=== PATIENT | female | born 1995 | race African-American/Black ===

== ENCOUNTER 2017-05-07 19:41 | Emergency (ER) | payer SELFPAY | END 2017-05-07 20:16 | disposition home or self-care (01) | LOC: ERS 19:41 | DX: E11.65 Type 2 diabetes mellitus with hyperglycemia (principal); J45.909 Unspecified asthma, uncomplicated; F41.9 Anxiety disorder, unspecified; F32.9 Major depressive disorder, single episode, unspecified; Z79.4 Long term (current) use of insulin | CPT/HCPCS: 36416; 99284 ==

== ENCOUNTER 2017-08-06 08:24 | Emergency (ER) | payer BC, SELFPAY ==
[2017-08-06] MEDS ORDERED: Fluorescein Opthalmic Strip ONE (11:04)
[2017-08-06] MEDS ORDERED: Proparacaine 0.5% Opth 15 ML BOT ONE (11:04)
== END 2017-08-06 11:43 | disposition home or self-care (01) ==
LOC: ERS 08:24
DX: S05.02XA Injury of conjunctiva and corneal abrasion without foreign body, left eye, initial encounter (principal); S05.01XA Injury of conjunctiva and corneal abrasion without foreign body, right eye, initial encounter; E11.9 Type 2 diabetes mellitus without complications; J45.909 Unspecified asthma, uncomplicated; F41.9 Anxiety disorder, unspecified; F32.9 Major depressive disorder, single episode, unspecified; Z79.4 Long term (current) use of insulin; X58.XXXA Exposure to other specified factors, initial encounter
CPT/HCPCS: 99282

== ENCOUNTER 2018-01-28 09:13 | Inpatient (IN) | payer SELFPAY ==
[2018-01-28 09:52] LABS: #Basophils 0.2 thou/uL (0.0-0.2); #Eosinphils 0.1 thou/uL (0.0-0.7); #Monocytes 0.5 thou/uL (0.11-0.59); #Neutrophils 5.3 thou/uL (1.40-6.50); %Eosinophils 0.7 % (0.0-10.0); %Lymphocytes 33.4 % (21.0-51.0); %Monocytes 5.8 % (0.0-10.0); %Neutrophils 58.2 % (42.0-75.0); Hemoglobin 16.5 g/dL (12.0-16.0); Mean Corpuscular Hemoglobin 31.1 pg (27.0-31.0); Mean Corpuscular Volume 91.3 fL (78.0-98.0); Mean Platelet Volume 10.3 fL (7.4-10.4); Platelet Count 263 thou/uL (130-400); Red Blood Cell (RBC) Count 5.32 mill/uL (4.20-5.40); White Blood Cell (WBC) Count 9.1 thou/uL (4.8-10.8)
[2018-01-28] MEDS ORDERED: Insulin Regular 300 UNITS/3 ML VIAL ONE (09:56)
[2018-01-28] MEDS ORDERED: Ondansetron ODT 4 MG TAB ONE (09:57)
[2018-01-28 10:13] LABS: BHCG - Serum Negative (NEGATIVE); Pregs Control Background? CLEAR/WHITE (CLR/WHITE); Pregs Control Bar Appear? YES (CONTROL BAR)
[2018-01-28 10:59] LABS: Bilirubin Negative (Negative); Blood, Urine Large (Negative); Clarity CLEAR (Clear); Glucose, Urine (Dipstick) >=1000 mg/dL (Negative); Leukocyte Negative (Negative); Nitrite Negative (Negative); Protein, Urine (Dipstick) 30 mg/dL (Neg-Trace); Specific Gravity, Urine 1.028 (1.002-1.036); Urobilinogen 0.2 mg/dL (0.2-1.0)
[2018-01-28 11:02] LABS: Bacteria/HPF None Seen HPF (None Seen); Hyaline Casts/LPF 0-3 HYALINE CAST LPF (0-3 Hyaline); Pathc Cast-AUWi Flag 0.14 (0-2.49); Squamous Epithelial 0-3 HPF (0-3); WBC/HPF 0-3 HPF (0-3); Yeast-AUWi Flag 18.6 (0-25.0)
[2018-01-28 12:57] LABS: Albumin 4.1 g/dL (3.5-5.0)
[2018-01-28 12:58] LABS: Chloride 99 mmol/L (98-107); Magnesium 2.1 mg/dL (1.6-2.6); Potassium 4.7 mmol/L (3.5-5.1); Sodium 126 mmol/L (136-145)
[2018-01-28 12:59] LABS: Calcium 8.6 mg/dL (7.8-10.44)
[2018-01-28 13:00] LABS: Glucose 459 mg/dL (70-105); Protein, Total 8.1 g/dL (6.0-8.3)
[2018-01-28 13:02] LABS: Alkaline Phosphatase 97 U/L (40-150); Bilirubin, Total 0.3 mg/dL (0.2-1.2)
[2018-01-28 13:03] LABS: Calc. Creatinine Clearance 0 mL/min (70-130); Estimated GFR-MDRD 51; Phosphorus 2.9 mg/dL (2.3-4.7)
[2018-01-28 13:04] LABS: BUN (Urea Nitrogen) 11 mg/dL (7.0-18.7)
[2018-01-28 13:05] LABS: AST (SGOT) 14 U/L (5-34)
[2018-01-28 13:06] LABS: ALT (SGPT) 10 U/L (8-55); Carbon Dioxide Less than 8 mmol/L (22-29)
[2018-01-28] MEDS ORDERED: Insulin Regular 100 units/100 ml in NS IVPB SCH (13:30)
[2018-01-28] MEDS ORDERED: Dextrose 5 %-0.45 % NaCl 1,000 ML IV PRN (15:29)
[2018-01-28] MEDS ORDERED: NS 0.9% w/ 20 MEQ KCL 1,000 ML IV PRN ×2 (15:29)
[2018-01-28] MEDS ORDERED: CCU Electrolyte Replacement 1 EACH IVPB ONE (15:29)
[2018-01-28] MEDS ORDERED: Sodium Chloride 0.9% 1,000 ML IV PRN ×4 (15:29)
[2018-01-28] MEDS ORDERED: Senokot 8.6 MG TAB PO PRN (15:29)
[2018-01-28] MEDS ORDERED: Guaifenesin DM 100-10/5 ML UDCUP PO PRN (15:29)
[2018-01-28 16:12] LABS: BUN (Urea Nitrogen) 8 mg/dL (7.0-18.7); Calc. Creatinine Clearance 0 mL/min (70-130); Calcium 8.4 mg/dL (7.8-10.44); Chloride 106 mmol/L (98-107); Estimated GFR-MDRD 69; Glucose 321 mg/dL (70-105); Potassium 4.4 mmol/L (3.5-5.1); Sodium 130 mmol/L (136-145)
[2018-01-28] MEDS ORDERED: Magnesium 2 GM/NS 0.9% 100 ML 2 GM in Premix Bag 1 BAG IVPB PRN (16:13)
[2018-01-28] MEDS ORDERED: Potassium Phosphate 12 MMOL in Sodium Chloride 0.9% 250 ML 250 ML IV PRN (16:13)
[2018-01-28] MEDS ORDERED: Potassium Chloride 40 MEQ in Premix Bag 1 BAG IVPB PRN (16:13)
[2018-01-28] MEDS ORDERED: Potassium Chloride 40 MEQ in Sodium Chloride 0.9% 250 ML 250 ML IVPB PRN (16:13)
[2018-01-28] MEDS ORDERED: Potassium Chloride 20 MEQ TAB PO PRN (16:13)
[2018-01-28] MEDS ORDERED: CCU ELECTROLYTE REPLACEMENT PROTOCOL FS PRN (16:13)
[2018-01-28] MEDS ORDERED: Potassium Phosphate 9 MMOL in Sodium Chloride 0.9% 100 ML IVPB PRN (16:13)
[2018-01-28] MEDS ORDERED: Magnesium Oxide 400 MG TAB PO PRN ×2 (16:13)
[2018-01-28] MEDS ORDERED: Potassium Phosphate 15 MMOL in Sodium Chloride 0.9% 250 ML 250 ML IV PRN (16:13)
[2018-01-28 16:15] LABS: Carbon Dioxide Less than 8 mmol/L (22-29)
[2018-01-28] MEDS: D5 1/2 NS w/20 mEq KCL 1,000 ML IV PRN ×2 (19:09→23:10)
[2018-01-28 20:01] LABS: Anion Gap 17 mmol/L (10-20); BUN (Urea Nitrogen) 6 mg/dL (7.0-18.7); Calc. Creatinine Clearance 0 mL/min (70-130); Calcium 8.5 mg/dL (7.8-10.44); Carbon Dioxide 11 mmol/L (22-29); Chloride 109 mmol/L (98-107); Estimated GFR-MDRD 70; Glucose 175 mg/dL (70-105); Potassium 3.6 mmol/L (3.5-5.1); Sodium 133 mmol/L (136-145)
[2018-01-28] MEDS: Acetaminophen 325 MG TAB PO PRN (21:08)
[2018-01-28] MEDS: Famotidine/PF 20 mg/2ml Vial SLOW IVP SCH (21:09)
--- NOTE | 2018-01-28 21:57 | HP ---
REASON FOR ADMISSION: DKA, severe dehydration, acute kidney injury. HISTORY OF PRESENTING ILLNESS: The patient gives history of feeling very dry and dehydrated. She also had palpitations and her stomach was upset. She is feeling nauseated, but not having any diarrhea. On arrival here, the patient was found to have had fingerstick glucose of 550 and serum bicarbonate less than 8. The patient admitted to not using any insulin for 4 weeks or so now. Her insulins cost $600 and she cannot afford. Her next appointment to see her primary care physician was tomorrow. No complaints of cough or expectoration. No complaints of urinary symptoms including burning urination or frequency. No complaints of chest pain or shortness of breath. PAST MEDICAL AND SURGICAL HISTORY: History of diabetes mellitus type 1, history of childhood asthma. No surgical history. CURRENT MEDICATIONS: None. ALLERGIES: No known drug allergies. PERSONAL HISTORY: Does not abuse alcohol or drugs. No history of smoking. Works at [employer]. She stays alone here. FAMILY HISTORY: Mother is healthy. Father has got diabetes. Both parents live in [place]. REVIEW OF SYSTEMS: The following complete review of systems was negative, unless otherwise mentioned in the HPI or below: Constitutional: Weight loss or gain, ability to conduct usual activities. Skin: Rash, itching. Eyes: Double vision, pain. ENT/Mouth: Nose bleeding, neck stiffness, pain, tenderness. Cardiovascular: Palpitations, dyspnea on exertion, orthopnea. Respiratory: Shortness of breath, wheezing, cough, hemoptysis, fever or night sweats. Gastrointestinal: Poor appetite, abdominal pain, heartburn, nausea, vomiting, constipation, or diarrhea. Genitourinary: Urgency, frequency, dysuria, nocturia. Musculoskeletal: Pain, swelling. Neurologic/Psychiatric: Anxiety, depression. Allergy/Immunologic: Skin rash, bleeding tendency. PHYSICAL EXAMINATION: GENERAL: The patient is a 22-year-old female who is not in any acute distress. VITAL SIGNS: Blood pressure 130/83, pulse 100 per minute, respiratory rate 14 per minute, temperature 97.5 degrees Fahrenheit, saturating 98% on room air. NECK: Supple, no elevated JVD. HEENT: Eyes, extraocular muscles intact. Pupils reacting to light. Oral cavity, mucous membranes are dry. No exudates or congestion. CARDIOVASCULAR SYSTEM: S1, S2 heard. Regular rhythm. RESPIRATORY SYSTEM: Air entry 1+ bilaterally. No rales or rhonchi. ABDOMEN: Soft, bowel sounds heard. No tenderness, rigidity or guarding. EXTREMITIES: No peripheral edema or calf tenderness. VASCULAR SYSTEM: Peripheral pulses 1+ bilateral, no ischemic ulcerations or gangrene. CENTRAL NERVOUS SYSTEM: No gross focal deficits noted. Patient is lethargic, but oriented well. PSYCHIATRIC SYSTEM: The patient's mood is euthymic. No hallucinations or delusions. LABORATORY DATA AND X-RAY FINDINGS: White count of 9, hemoglobin and hematocrit 16 and 48, platelet count 263 with 58% neutrophils, MCV is 91. Serum sodium 126. Serum bicarbonate less than 8, BUN is 11, creatinine 1.5. Serum glucose was 459. Liver enzymes within normal limits. Albumin is 4.1. Serum test is negative. Beta hydroxybutyrate is 10.0. UA does not show any signs of infection. CLINICAL IMPRESSION AND PLAN: The patient will be admitted to [facility] for DKA. She is currently at 7 units per hour of regular insulin IV drip. She will be on DKA protocol. She will be fluid resuscitated per protocol. Currently, has acute kidney injury with electrolyte abnormalities and will be closely monitored as her sugar gets corrected. Her DKA is due to noncompliance with insulin which she has not taken from last 4 weeks due to financial issues and cannot afford. We will obtain case management consultation and try to place her on NPH insulin with regular insulin coverage to reduce her cost if she has to buy these. She needs adequate counseling prior to discharge with regards to insulin compliance. There is no infectious source for her DKA at present. BEN
[2018-01-29 00:06] LABS: Anion Gap 16 mmol/L (10-20); BUN (Urea Nitrogen) 5 mg/dL (7.0-18.7); Calc. Creatinine Clearance 106 mL/min (70-130); Carbon Dioxide 12 mmol/L (22-29); Chloride 110 mmol/L (98-107); Estimated GFR-MDRD 83; Glucose 200 mg/dL (70-105); Potassium 4.4 mmol/L (3.5-5.1); Sodium 134 mmol/L (136-145)
[2018-01-29] MEDS: D5 1/2 NS w/20 mEq KCL 1,000 ML IV PRN (03:20)
[2018-01-29 03:50] LABS: Anion Gap 12 mmol/L (10-20); BUN (Urea Nitrogen) 4 mg/dL (7.0-18.7); Calc. Creatinine Clearance 116 mL/min (70-130); Calcium 8.2 mg/dL (7.8-10.44); Carbon Dioxide 14 mmol/L (22-29); Chloride 108 mmol/L (98-107); Estimated GFR-MDRD Greater than 90; Glucose 204 mg/dL (70-105); Potassium 3.8 mmol/L (3.5-5.1); Sodium 130 mmol/L (136-145)
[2018-01-29] MEDS: Acetaminophen 325 MG TAB PO PRN (05:50)
[2018-01-29 07:15] LABS: Hemoglobin 13.1 g/dL (12.0-16.0); Mean Corpuscular HGB CONC 35.2 g/dL (32.0-36.0); Mean Corpuscular Hemoglobin 32.2 pg (27.0-31.0); Mean Corpuscular Volume 91.5 fL (78.0-98.0); Mean Platelet Volume 9.7 fL (7.4-10.4); Platelet Count 194 thou/uL (130-400); RBC Distribution Width 12.1 % (11.5-14.5); Red Blood Cell (RBC) Count 4.08 mill/uL (4.20-5.40); White Blood Cell (WBC) Count 5.7 thou/uL (4.8-10.8)
[2018-01-29 10:03] LABS: Band 5 % (5-11); Eosinophils 1 % (0-10); Lymphocytes 45 % (21-51); MDiff Complete? YES; Monocytes 16 % (0-10); Neutrophil 27 % (42-75); PLT Morphology Comment Appears Adequate; RBC Morphology Normal; Reactive Lymphocytes 5 % (0-10)
[2018-01-29] MEDS: Enoxaparin Sodium 40 MG/0.4 ML SYRINGE SC SCH (10:35)
[2018-01-29] MEDS: Famotidine/PF 20 mg/2ml Vial SLOW IVP SCH ×2 (10:35→20:45)
[2018-01-29] MEDS ORDERED: Dextrose 50% Abboject 50 ML SYRINGE SLOW IVP PRN (13:44)
[2018-01-29] MEDS ORDERED: Dextrose 5% in Water 1,000 ML IV PRN (13:44)
--- NOTE | 2018-01-29 16:06 | RAD ---
RIGHT FINGER THREE VIEWS: History: Finger injury. Comparison: None. FINDINGS: No acute displaced fracture or malalignment. Soft tissues are unremarkable. IMPRESSION: No acute displaced fracture or malalignment. POS: ANGEL
[2018-01-29] MEDS: Insulin Regular 300 UNITS/3 ML VIAL SC PRN ×2 (17:42→20:50)
[2018-01-29] MEDS: Sodium Chloride 0.9% 1,000 ML IV SCH (21:45)
--- NOTE | 2018-01-29 22:45 | PDOC.PN ---
- Subjective Encounter Start Date: 01/29/18 Encounter Start Time: 11:00 Feeling some better. No abdominal pain. - Objective Vital Signs & Weight: Vital Signs (12 hours) Temp Pulse Resp BP Pulse Ox 01/29/18 20:00 97.9 F 96 20 99 01/29/18 19:35 97.9 F 96 20 123/56 L 99 01/29/18 15:33 98.6 F 77 12 115/67 100 01/29/18 11:56 97.0 F L 74 12 112/68 99 Weight Weight 169 lb 14.4 oz I&O: 01/28/18 01/29/18 01/30/18 06:59 06:59 06:59 Intake Total 3505 3380 Output Total 3040 800 Balance 465 2580 Result Diagrams: 01/29/18 03:16 01/30/18 03:47 Additional Labs: Accuchecks 01/29/18 01/29/18 01/29/18 20:21 17:04 13:48 POC Glucose 252 H 263 H 143 H 01/29/18 01/29/18 01/29/18 12:46 11:39 10:08 POC Glucose 154 H 129 H 159 H 01/29/18 01/29/18 01/29/18 09:17 08:09 07:04 POC Glucose 154 H 140 H 147 H 01/29/18 01/29/18 01/29/18 06:14 05:11 04:01 POC Glucose 182 H 202 H 210 H 01/29/18 01/29/18 01/29/18 03:16 02:14 01:15 POC Glucose 190 H 185 H 180 H 01/29/18 01/28/18 00:01 23:05 POC Glucose 183 H 227 H Phys Exam - Physical Examination Constitutional: NAD HEENT: PERRLA, oral pharynx no lesions Respiratory: no wheezing, no rales, no rhonchi, clear to auscultation bilateral Cardiovascular: RRR, no significant murmur Gastrointestinal: soft, non-tender, no distention Musculoskeletal: no edema Dx/Plan (1) Ketoacidosis Code(s): E87.2 - ACIDOSIS Status: Acute Comment: Resolved. Non-compliance due to lack of resources. (2) Diabetes type 1, uncontrolled Code(s): E10.65 - TYPE 1 DIABETES MELLITUS WITH HYPERGLYCEMIA Status: Chronic Comment: Off of the insulin gtt. Now on ISS. Will reassess her needs today and anticipate discharge tomorrow with 70/30 insulin. - Plan * Feeling hungry. Will start diet, stop the gtt of insulin. Can move to the floor. Gap is closed. Continue with ISS. WIll need to DC with 70/30 for cost concerns.
[2018-01-30] MEDS: Sodium Chloride 0.9% 1,000 ML IV SCH ×3 (04:32→17:22)
[2018-01-30 04:35] LABS: Anion Gap 19 mmol/L (10-20); BUN (Urea Nitrogen) 5 mg/dL (7.0-18.7); Calc. Creatinine Clearance 112 mL/min (70-130); Calcium 8.4 mg/dL (7.8-10.44); Carbon Dioxide 13 mmol/L (22-29); Chloride 104 mmol/L (98-107); Estimated GFR-MDRD 88; Glucose 275 mg/dL (70-105); Potassium 3.7 mmol/L (3.5-5.1); Sodium 132 mmol/L (136-145)
[2018-01-30] MEDS: Insulin Regular 300 UNITS/3 ML VIAL SC PRN ×4 (06:04→23:00)
[2018-01-30 06:19] VITALS: BMI 26.5
[2018-01-30] MEDS ORDERED: Insulin Regular 300 UNITS/3 ML VIAL SC PRN (08:43)
[2018-01-30] MEDS: Famotidine/PF 20 mg/2ml Vial SLOW IVP SCH ×2 (10:23→23:00)
[2018-01-30] MEDS: Enoxaparin Sodium 40 MG/0.4 ML SYRINGE SC SCH (10:23)
--- NOTE | 2018-01-30 20:48 | PDOC.PN ---
- Subjective Encounter Start Date: 01/30/18 Encounter Start Time: 11:00 Feeling well. Has been eating. Has been ordering multiple trays of food. - Objective MAR Reviewed: Yes Vital Signs & Weight: Vital Signs (12 hours) Temp Pulse Resp BP Pulse Ox 01/30/18 19:24 98.2 F 86 16 126/84 99 01/30/18 16:33 97.5 F L 75 18 112/76 99 01/30/18 15:20 98.3 F 77 16 121/79 100 01/30/18 12:00 98.7 F 91 18 114/67 98 Weight Weight 169 lb 4.8 oz I&O: 01/29/18 01/30/18 01/31/18 06:59 06:59 06:59 Intake Total 3505 5670 360 Output Total 3040 2780 Balance 465 2890 360 Result Diagrams: 01/29/18 03:16 01/30/18 03:47 Additional Labs: Accuchecks 01/30/18 01/30/18 01/30/18 16:29 12:02 08:01 POC Glucose 247 H 345 H 256 H 01/30/18 01/30/18 01/30/18 05:49 04:04 00:03 POC Glucose 294 H 237 H 270 H Phys Exam - Physical Examination Constitutional: NAD HEENT: oral pharynx no lesions Respiratory: no wheezing Cardiovascular: RRR, no significant murmur Gastrointestinal: soft, non-tender, no distention, positive bowel sounds Musculoskeletal: no edema Psychiatric: normal affect Dx/Plan (1) Ketoacidosis Code(s): E87.2 - ACIDOSIS Status: Acute Comment: Resolved. Non-compliance due to lack of resources. (2) Diabetes type 1, uncontrolled Code(s): E10.65 - TYPE 1 DIABETES MELLITUS WITH HYPERGLYCEMIA Status: Chronic Comment: Off of the insulin gtt. Now on ISS. Will reassess her needs today and anticipate discharge tomorrow with 70/30 insulin. - Plan * Move to floor.
[2018-01-31] MEDS: Sodium Chloride 0.9% 1,000 ML IV SCH ×3 (03:48→16:01)
[2018-01-31 05:04] LABS: Anion Gap 15 mmol/L (10-20); BUN (Urea Nitrogen) 8 mg/dL (7.0-18.7); Calc. Creatinine Clearance 120 mL/min (70-130); Calcium 9.1 mg/dL (7.8-10.44); Carbon Dioxide 22 mmol/L (22-29); Chloride 104 mmol/L (98-107); Estimated GFR-MDRD Greater than 90; Glucose 225 mg/dL (70-105); Potassium 3.8 mmol/L (3.5-5.1); Sodium 137 mmol/L (136-145)
[2018-01-31] MEDS: Famotidine/PF 20 mg/2ml Vial SLOW IVP SCH (09:32)
[2018-01-31] MEDS: Enoxaparin Sodium 40 MG/0.4 ML SYRINGE SC SCH (09:32)
[2018-01-31] MEDS: Insulin Regular 300 UNITS/3 ML VIAL SC PRN ×2 (09:43→12:21)
[2018-01-31 16:51] VITALS: BP 126/85; TEMP 97.4
== END 2018-01-31 16:53 | disposition home or self-care (01) | DRG 638 ==
LOC: ERS 09:13 → IMCU/EMU 18:36 → T4-B 01-30 15:32
PROVIDERS: ADMIT Internal Medicine; ATTEND Internal Medicine
DX: E10.10 Type 1 diabetes mellitus with ketoacidosis without coma (principal); N17.9 Acute kidney failure, unspecified; T38.3X6A Underdosing of insulin and oral hypoglycemic [antidiabetic] drugs, initial encounter; Z91.120 Patient's intentional underdosing of medication regimen due to financial hardship; E86.0 Dehydration; Z83.3 Family history of diabetes mellitus
CPT/HCPCS: 36415; 36416; 80048; 80053; 81001; 82010; 83735; 84100; 84703; 85025; 87077; 87086; 96361; 96365; 96366; 96376; J1650; J1815; J7050; Q0162; S0028

== ENCOUNTER 2018-05-03 23:54 | Emergency (ER) | payer SELFPAY ==
[2018-05-04] MEDS ORDERED: Ondansetron PF 4 MG/2 ML Vial ONE (00:39)
[2018-05-04] MEDS ORDERED: Acetaminophen 500 MG TAB ONE (00:39)
[2018-05-04 00:45] LABS: Hemoglobin 13.7 g/dL (12.0-16.0); Mean Corpuscular HGB CONC 33.5 g/dL (32.0-36.0); Mean Corpuscular Hemoglobin 30.6 pg (27.0-31.0); Mean Corpuscular Volume 91.4 fL (78.0-98.0); Mean Platelet Volume 9.9 fL (7.4-10.4); Platelet Count 273 thou/uL (130-400); RBC Distribution Width 11.5 % (11.5-14.5); Red Blood Cell (RBC) Count 4.47 mill/uL (4.20-5.40); White Blood Cell (WBC) Count 6.5 thou/uL (4.8-10.8)
[2018-05-04 00:53] LABS: BHCG - Serum Negative (NEGATIVE); Pregs Control Background? CLEAR/WHITE (CLR/WHITE); Pregs Control Bar Appear? YES (CONTROL BAR)
[2018-05-04 00:59] LABS: Band 5 % (5-11); Eosinophils 1 % (0-10); Lymphocytes 49 % (21-51); MDiff Complete? YES; Monocytes 4 % (0-10); Neutrophil 41 % (42-75)
[2018-05-04 01:04] LABS: ALT (SGPT) 11 U/L (8-55); AST (SGOT) 12 U/L (5-34); Alkaline Phosphatase 65 U/L (40-150); Anion Gap 14 mmol/L (10-20); BUN (Urea Nitrogen) 15 mg/dL (7.0-18.7); Bilirubin, Total 0.5 mg/dL (0.2-1.2); Calc. Creatinine Clearance 0 mL/min (70-130); Calcium 9.7 mg/dL (7.8-10.44); Carbon Dioxide 24 mmol/L (22-29); Chloride 98 mmol/L (98-107); Estimated GFR-MDRD Greater than 90; Globulin 3.8 g/dL (2.4-3.5); Glucose 480 mg/dL (70-105); Lipase 55 U/L (8-78); Potassium 4.3 mmol/L (3.5-5.1); Protein, Total 7.8 g/dL (6.0-8.3); Sodium 132 mmol/L (136-145)
[2018-05-04 01:13] LABS: Bicarbonate (HCO3v) 25.1 mmol/L (1.0-85.0); CO2 Tension (PvCO2) 41.7 mmHg (41.0-51.0); Calcium, Ionized 1.17 mmol/L (1.12-1.32); Hemoglobin - Calc 14.1 g/dL (12.0-18.0); O2 Tension (PvO2) 67.3 mmHg (35.0-45.0); Potassium 3.9 mmol/L (3.4-4.7); T. Carbon Dioxide 26.4 mmol/L (1.0-85.0); pH (Venous) 7.388 (7.35-7.45); vO2 Saturation-calc 92.8 % (94-98)
[2018-05-04 01:28] LABS: Bilirubin Negative (Negative); Blood, Urine Negative (Negative); Clarity CLEAR (Clear); Glucose, Urine (Dipstick) >=1000 mg/dL (Negative); Leukocyte Negative (Negative); Nitrite Negative (Negative); Protein, Urine (Dipstick) Negative (Neg-Trace); Specific Gravity, Urine 1.038 (1.002-1.036); Urobilinogen 0.2 mg/dL (0.2-1.0)
[2018-05-04] MEDS ORDERED: HumaLOG 300 UNITS/3 ML VIAL SC SCH (03:15)
[2018-05-04] MEDS ORDERED: Insulin Regular 300 UNITS/3 ML VIAL ONE (03:20)
== END 2018-05-04 03:57 | disposition home or self-care (01) ==
LOC: ERS 23:54
DX: E11.65 Type 2 diabetes mellitus with hyperglycemia (principal); J45.909 Unspecified asthma, uncomplicated; F41.9 Anxiety disorder, unspecified; F32.9 Major depressive disorder, single episode, unspecified; Z79.4 Long term (current) use of insulin
CPT/HCPCS: 36416; 80053; 81003; 82010; 82330; 82803; 83690; 84703; 85025; 96361; 96374; J1815; J2405